=== PATIENT | female | born 1955 | race Asian ===

== ENCOUNTER 2017-04-13 12:36 | Emergency (ER) | payer BC, MEDICARE ==
[~2017-04-13] VITALS: Ht 162.6 cm; Wt 88.9 kg
[~2017-04-13 12:36] MED LIST: ALBU18HF INH; ALBU8.5H8 INH; CIPR500T3 PO; FLUT12HF3 IH; LISI1TAB5 PO; OXYC-307 PO; OXYC1TAB7 PO
[2017-04-13] MEDS ORDERED: RANI-276 PO (13:35)
[2017-04-13] MEDS ORDERED: FAMOTIDINE 20 MG/2 ML IVP ONE (14:00)
[2017-04-13] MEDS ORDERED: SODIUM CHLORIDE FLUSH 10ML SYR IVF ONE (14:00)
[2017-04-13] MEDS ORDERED: MAALOX/HYOSCYAMINE/LIDOCAINE 45 ML BTL PO ONE (14:00)
[2017-04-13] MEDS ORDERED: SODIUM CHLORIDE 0.9% 1,000ML IVBOLUS ONE (14:00)
[2017-04-13] MEDS ORDERED: MORPHINE SULFATE 4 MG/ML, 1ML IVPush PRN (14:00)
[2017-04-13] MEDS ORDERED: ONDANSETRON 2MG/ML, 2ML IVPush ONE (14:00)
[2017-04-13] MEDS ORDERED: MAALOX/HYOSCYAMINE/LIDOCAINE 45 ML BTL ONE (14:03)
[2017-04-13] MEDS ORDERED: morphine SULFATE 10 MG/ML, 1ML ONE (14:03)
[2017-04-13] MEDS ORDERED: ONDANSETRON 2MG/ML, 2ML ONE (14:03)
[2017-04-13] MEDS ORDERED: FAMOTIDINE 20 MG/2 ML ONE (14:03)
[2017-04-13 14:37] LABS: HEMATOCRIT 42.4 % (34.6-47.8); HEMOGLOBIN 14.4 g/dL (11.7-16.4); WHITE BLOOD COUNT 9.7 x10^3/uL (3.4-10)
[2017-04-13 14:37] LABS: PATH.CAST-FLAG NOT PRESENT; SPERM-FLAG NOT PRESENT; SRC-FLAG NOT PRESENT; XTAL-FLAG NOT PRESENT; YLC-FLAG NOT PRESENT
[2017-04-13 14:43] LABS: ASPARTATE AMINO TRANSFERASE 28 U/L (15-37); BLOOD UREA NITROGEN 30 mg/dL (7-18)
[2017-04-13 14:49] LABS: IS PT STATUS REG ER OR PRE ER? YES
[2017-04-13 16:37] VITALS: BP 145/57
== END 2017-04-13 16:40 | disposition home or self-care (01) ==
LOC: ED 15:04
DX: R10.13 Epigastric pain (principal); R11.2 Nausea with vomiting, unspecified; J44.9 Chronic obstructive pulmonary disease, unspecified; K21.9 Gastro-esophageal reflux disease without esophagitis; F17.200 Nicotine dependence, unspecified, uncomplicated; Z99.81 Dependence on supplemental oxygen
CPT/HCPCS: 36415; 74022; 80053; 81001; 83690; 84484; 85025; 85379; 85610; 93005; 96361; 96374; 96375; 99285; J2405; J7030; S0028

== ENCOUNTER → 2018-12-15 | Outpatient (CLI) | payer MEDICARE ==
[~2018-12-15] MED LIST changes: +RANI-448 PO
== END | disposition home or self-care (01) ==
LOC: CFH 06:43
PROVIDERS: ATTEND Internal Medicine
DX: I08.3 Combined rheumatic disorders of mitral, aortic and tricuspid valves (principal); I10 Essential (primary) hypertension; F17.200 Nicotine dependence, unspecified, uncomplicated
CPT/HCPCS: 71045; 78582; 93306; A9540; A9558